=== PATIENT | male | born 1950 | race Caucasian/White ===

== ENCOUNTER → 2019-08-14 | Outpatient (CLI) | payer MEDICARE ==
[~2019-08-14] MED LIST: AMITRIPTYLINE H75 MG; LISINOPRIL-HCT1 EACH; NIASPAN500 MG; PRILOSEC OTC20 MG; SIMVASTATIN40 MG; ULTRAM50 MG
[2019-08-14 14:40] LABS: CREATININE, SERUM 2.78 mg/dL (0.72-1.25)
--- NOTE | 2019-08-15 07:58 | Diagnostic Imaging Report ---
Examination:CT SOFT TISSUE NECK WO CONTRAST History: Carotid stenosis. Bilateral carotid bruit. Comparison studies: None Technique: Axial images from the skull base to the thoracic inlet with coronal and sagittal reformats. Dose modulation, iterative reconstruction, and/or weight based adjustment of the mA/kV was utilized to reduce the radiation dose to as low as reasonably achievable. Findings: Evaluation of the neck is limited due to the absence of intravenous contrast. In spite of this limitation, Soft tissues: No abnormalities. Aerodigestive tract: No abnormality. Lymph nodes: No radiographically significant adenopathy. Bilateral carotid arteries: There is atherosclerotic calcification bilateral carotid bifurcations and proximal right cervical internal carotid artery with presumed stenosis given near circumferential involvement (series 3, image #61). Thyroid gland: Normal in size and homogeneous. Submandibular glands: Normal in size and homogeneous. Parotid glands: Normal in size and homogeneous. Orbits: No abnormalities. Paranasal sinuses: Clear. Temporal bones: No abnormalities. Skull base and facial bones: Intact. Cervical spine: Diffuse disc osteophyte complexes from C3 6 through C6-C7 with severe bilateral neural foraminal narrowing from C3-C4 through C6-C7 and mild canal stenosis at C5-C6 and C6-C7. Visualized lung apices: Paraseptal and interstitial emphysematous change (right greater than left). IMPRESSION: Atherosclerotic calcification of the bilateral carotid bifurcations and proximal cervical right internal carotid artery. Evaluation for degree of stenosis is limited given lack of intravenous contrast. An ultrasound may be obtained for further evaluation given patient's renal failure. Degenerative changes of the cervical spine from C3-C4 through C6-C7, as above. Signed by: Dr. Kayla Barlow M.D. on 08/15/2019 7:54 AM
== END ==
LOC: CT 13:30
PROVIDERS: ATTEND Internal Medicine Cardiovascular Disease
DX: R09.89 Other specified symptoms and signs involving the circulatory and respiratory systems (principal)
CPT/HCPCS: 36415; 70490; 82565; 84520

== ENCOUNTER 2019-08-30 08:25 | Inpatient (IN) | payer OTHER ==
[2019-08-28 13:56] LABS: BASOPHILS % 0.5 % (0.0-1.0); EOSINOPHILS # (AUTO) 0.4 (0.0-0.4); EOSINOPHILS % 6.9 % (0.0-6.0); HEMATOCRIT 33.8 % (38.2-49.6); HEMOGLOBIN 10.8 g/dL (14.0-18.0); LYMPHOCYTES # (AUTO) 1.4 (1.0-3.2); LYMPHOCYTES % 22.4 % (18.0-39.1); MEAN CORPUSCULAR HEMOGLOBIN 31.1 pg (28-32); MEAN CORPUSCULAR VOLUME 97.4 fL (81-99); MONOCYTES # (AUTO) 0.5 (0.2-0.8); MONOCYTES % 7.7 % (4.4-11.3); NEUTROPHILS # (AUTO) 3.9 (2.1-6.9); NEUTROPHILS % 62.2 % (38.7-80.0); PLATELET COUNT 162 x10e3/uL (140-360); RED BLOOD COUNT 3.47 x10e6/uL (4.3-5.7); RED CELL DISTRIBUTION WIDTH 12.1 % (11.7-14.4)
--- NOTE | 2019-08-28 13:57 | Diagnostic Imaging Report ---
EXAMINATION: CHEST 2 VIEWS INDICATION: Pre-operative COMPARISON: None FINDINGS: LINES/TUBES:None LUNGS:The lungs are well-inflated. No focal consolidation or pulmonary edema. PLEURA:No pleural effusion or pneumothorax. MEDIASTINUM:The cardiomediastinal silhouette appears normal in size and shape. Atherosclerotic calcifications of the thoracic aorta. BONES/SOFT TISSUES:No acute osseous injury. Sternotomy wires intact. ABDOMEN:No free air under the diaphragm. IMPRESSION: No focal pneumonia or pulmonary edema. Signed by: Grant Boland MD on 08/28/2019 1:53 PM
[2019-08-28 14:06] LABS: INR 0.9; PARTIAL THROMBOPLASTIN TIME 31.2 seconds (23.8-35.5); PROTHROMBIN TIME 12.6 seconds (11.9-14.5)
[2019-08-28 14:10] LABS: ANION GAP 16.1 mmol/L (8-16); CREATININE, SERUM 2.53 mg/dL (0.72-1.25); POTASSIUM 5.1 mmol/L (3.5-5.1)
[~2019-08-30] VITALS: Ht 165.1 cm; Wt 79.4 kg
[2019-08-30] VITALS (13 sets, daily range): BP systolic 116–164; BP diastolic 51–81
[~2019-08-30 08:25] MED LIST changes: -AMITRIPTYLINE H75 MG; +AMITRIPTYLINE H75 MG PO; +ASPIRIN81 MG PO; +FUROSEMIDE40 MG PO; +HEPARIN SOD/SOD CHLORIDE 1,000 ML ONE; +KLOR-CON 1010 MEQ PO; +LISINOPRIL-HCT1 EACH PO; +LOPRESSOR25 MG PO; -PRILOSEC OTC20 MG; +PRILOSEC OTC20 MG PO; +SIMVASTATIN40 MG PO
--- OUTSIDE RECORDS SUMMARY | 2019-08-30 08:30 | XMS REPORT ---
Author Author [facility] Address Unknown Phone Unavailable Care Team Providers Care [facility] Name Role Phone STUART WELLS Unavailable Unavailable SHANNON METZGER Unavailable Unavailable Problems This patient has no known problems. Allergies, Adverse Reactions, Alerts This patient has no known allergies or adverse reactions. Medications This patient has no known medications. Results Test Description Test Time Test Comments Text Results Atomic Results Result Comments CHEST 2 VIEWS 2019-08-28 13:52:00 [place] [address] Patient Name: ALISHA HARRISON MR #: [id number] : 1950 Age/Sex: 69/M Req #: [id number] Adm Physician: Ordered by: STUART WELLS MD Report #: [id number] Location: OR Room/Bed: Procedure: [id number] DX/CHEST 2 VIEWS Exam Date: 08/28/19 Exam Time: 1338 REPORT STATUS: Signed EXAMINATION: CHEST 2 VIEWS INDICATION: Pre-operative COMPARISON: None FINDINGS: LINES/TUBES:None LUNGS:The lungs are well-inflated. No focal consolidation or pulmonary edema. PLEURA:No pleural effusion or pneumothorax. MEDIASTINUM:The cardiomediastinal silhouette appears normal in size and shape. Atherosclerotic calcifications of the thoracic aorta. BONES/SOFT TISSUES:No acute osseous injury. Sternotomy wires intact. ABDOMEN:No free air under the diaphragm. IMPRESSION: No focal pneumonia or pulmonary edema. Signed by: Mateo Reid MD on 08/28/2019 1:53 PM Dictated By: MATEO REID MD 1359 Transcribed By: LENIN on 08/28/19 1355 COPY TO: STUART WELLS MD CT SOFT TISSUE NECK WO 2019-08-15 07:42:00 [place] [address] Patient Name: ALISHA HARRISON MR #: [id number] : 1950 Age/Sex: 69/M Req #: [id number] Adm Physician: Ordered by: SHANNON METZGER MD Report #: [id number] Location: CT Room/Bed: Procedure: [id number] CT/CT SOFT TISSUE NECK WO Exam Date: 08/14/19 Exam Time: 1510 REPORT STATUS: Signed Examination:CT SOFT TISSUE NECK WO CONTRAST Histor y: Carotid stenosis. Bilateral carotid bruit. Comparison studies: None Technique: Axial images from the skull base to the thoracic inlet with coronal and sagittal reformats. Dose modulation, iterative reconstruction, and/or weight based adjustment of the mA/kV was utilized to reduce the radiation dose to as low as reasonably achievable. Findings: Evaluation of the neck is limited due to the absence of intravenous contrast. In spite of this limitation, Soft tissues: No abnormalities. Aerodigestive tract: No abnormality. Lymph nodes: No radiographically significant adenopathy. Bilateral carotid arteries: There is atherosclerotic calcification bilateral carotid bifurcations and proximal right cervical internal carotid artery with presumed stenosis given near circumferential involvement (series 3, image #61). Thyroid gland: Normal in size and homogeneous. Submandibular glands: Normal in size and homogeneous. Parotid glands: Normal in size and homogeneous. Orbits: No abnormalities. Paranasal sinuses: Clear. Temporal bones: No abnormalities. Skull base and facial bones: Intact. Cervical spine: D iffuse disc osteophyte complexes from C3 6 through C6-C7 with severe bilateral neural foraminal narrowing from C3-C4 through C6-C7 and mild canal stenosis at C5-C6 and C6-C7. Visualized lung apices: Paraseptal and interstitial emphysematous change (right greater than left). IMPRESSION: Atherosclerotic calcification of the bilateral carotid bifurcations and proximal cervical right internal carotid artery. Evaluation for degree of stenosis is limited given lack of intravenous contrast. An ultrasound may be obtained for further evaluation given patient's renal failure. Degenerative changes of the cervical spine from C3-C4 through C6-C7, as above. Signed by: Dr. Kayla Barlow M.D. on 08/15/2019 7:54 AM Dictated By: KAYLA MAS MD 0754 Transcribed By: LENIN on 08/15/19 0754 COPY TO: SHANNON METZGER MD
--- OUTSIDE RECORDS SUMMARY | 2019-08-30 08:30 | XMS REPORT | Encounter Summary ---
Author Organization Unknown Address [address] [place] [address] Phone [phone] Care Team Providers Care [facility] Name Role Phone Dr. Jordy Turner 3 [phone] Edinson Stanton MD 82 [phone] Yohan Pierre MD 118 [phone] Caro Linares MD 129 [phone] Graham Munoz MD 188 [phone] Reason for Visit Hyperlipidemia; Annual Depression Screening Instructions 1. Body mass index 25-29 - overweight learning about healthy weight 2. Depression screening learning about depression 3. Hyperlipidemia high cholesterol: care instructions simvastatin 40 mg tablet lipid panel, serum CMP, serum or plasma 4. Rheumatic mitral regurgitation 5. Hypertensive disorder 6. Serum ferritin high 7. Chronic kidney disease 8. Anemia Discussion Note: None recorded. Plan of Care Patient Instructions It was good to see you in the office today for your Medicare Annual Wellness Visit. You have been provided some information on healthy nutrition, including a diet rich in fruits and vegetables, minimizing simple carbohydrates, salt, and saturated fats. I want to encourage regular cardiovascular exercise such as walking at least 30 minutes daily, 5 times per week. Please remember to schedule any preventive health measures that we talked about today. You have also been provided education on fall prevention and community- based lifestyle interventions to help reduce health risks and promote healthy living in your Annual Wellness folder. Screening Recommendations 1. Vaccines Pneumonia: Influenza: 2. Colorectal Cancer Screenin. Annual Prostate Screening 4. Annual Depression Screening 5. Annual Alcohol Screening 6. Annual Fall Risk Screening 7. Annual Health Risk Assessment Reminders Provider Appointments Return to Office on or around 07/11/2019 Jose Means MD Lab Lipid Panel, Serum 04/10/2019 [facility] CMP, Serum or Plasma 04/10/2019 [facility] Referral None recorded. Procedures None recorded. Surgeries None recorded. Imaging None recorded. Medications Name Start Date amitriptyline 75 mg tablet Take 1 tablet every day by oral route. furosemide 40 mg tablet Take 1 tablet every day by oral route. Klor-Con 10 mEq tablet,extended release Take 1 tablet every day by oral route. lisinopril 20 mg-hydrochlorothiazide 12.5 mg tablet Take 1 tablet(s) every day by oral route. metoprolol tartrate 25 mg tablet Take 1 tablet twice a day by oral route. Prilosec 20 mg capsule,delayed release Take 1 capsule every day by oral route. simvastatin 40 mg tablet TAKE ONE (1) TABLET(S) BY MOUTH EVERY DAY tramadol 50 mg tablet BID PRN Medications Administered None recorded. Vitals Height Weight BMI Blood Pressure 5 ft 4.6 in 167 lbs 28.1 kg/m2 128/70 mm[Hg] Lab Results None recorded. Allergies Code Code System Name Reaction Severity Status Onset NKDA Problems Name Status Onset Date Source Hyperlipidemia Active 08/06/2016 Anemia Active 08/06/2016 Neuropathy Active 08/06/2016 Hypertensive Disorder Active 08/06/2016 Gastroesophageal Reflux Disease Active 08/06/2016 Rheumatic Mitral Regurgitation Active 03/30/2017 Chronic Kidney Disease Active 03/30/2017 Polyp of Colon Active 07/17/2017 Tijerina's Esophagus Active 07/17/2017 Serum Ferritin High Active 10/16/2018 Procedures Date Name Performed by 10/12/2017 Colonoscopy with Biopsy Information not available 11/01/1999 Ankle Arthroscopy/surgery Information not available Hernia Repair Information not available Vaccine List Vaccine Type influenza, high dose seasonal 08/07/20160.5 mL influenza, unspecified formulation 09/01/2017 09/01/2018 pneumococcal, unspecified formulation 05/10/2015 09/01/2017 zoster 10/11/20170.65 mL Social History Smoking Status Former Smoker Past Encounters 04/10/2019 Body Mass Index 25-29 - Overweight; Depression Screening; Hyperlipidemia; Rheumatic Mitral Regurgitation; Hypertensive Disorder; Serum Ferritin High; Chronic Kidney Disease; Anemia Jose Means MD: [id number] [place] [address], Ph. 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 Level of Distress: comfortable Psychiatric: Mental Status: alert, normal affect. Orientation: oriented to time, place, and person. Insight: good judgment Eyes: Lids and Conjunctivae: non-injected, anicteric, no discharge, no pallor, no arcus senilis, no xanthelasma. Pupils: PERRLA Neck: Neck: supple, trachea midline, no masses, FROM. Carotid Arteries: bilateral normal upstroke, no bruits, no thrills. Cervical Lymph Nodes: non tender, not enlarged. Thyroid: not enlarged, non tender, no nodules Lungs: Respiratory Effort: unlabored. Chest Exam: normal curvature, no thoracic deformity, no chest wall tenderness. Percussion: resonant. Auscultation: clear, no wheezing, no rales, no rhonchi Cardiovascular: Precordial Exam: non displaced focal PMI, no heaves, no precordial thrills. Rate And Rhythm: regular. Heart Sounds: normal S1, physiologically split S2, no rub, no gallop, no click. Systolic Murmur: not heard. Diastolic Murmur: not heard. Extremities: no cyanosis, no edema, no peripheral signs of emboli Skin: Inspection and Palpation: warm and dry. Nails: no clubbing
[2019-08-30] MEDS ORDERED: LIDOCAINE HCL 1% 2 ML AMP ONE (09:00)
[2019-08-30] MEDS ORDERED: PROTAMINE SULFATE 10 MG/ML 5 ML VIAL ONE (09:00)
[2019-08-30] MEDS ORDERED: SODIUM CHLORIDE 0.9% 500ML 500 ML ONE (09:01)
[2019-08-30] MEDS ORDERED: HEPARIN SOD (PORCINE) 1000 UNIT/ML 30ML ONE (09:01)
[2019-08-30] MEDS ORDERED: MUPIROCIN 2% OINT 22 GM TUBE ONE (09:01)
[2019-08-30] MEDS ORDERED: THROMBIN FOR SOLN 5,000 UNIT VIAL ONE ×2 (09:01→12:30)
[2019-08-30] MEDS ORDERED: LIDOCAINE HCL (LTA) 4 ML SOLN ONE (10:04)
[2019-08-30] MEDS ORDERED: NICARDIPINE HCL SOLN 0 ML ONE (10:05)
[2019-08-30] MEDS ORDERED: SUGAMMADEX SODIUM 200 MG/2 ML VIAL IV ONE (11:25)
[2019-08-30] MEDS ORDERED: PHENYLEPHRINE HCL 1% 10 MG/ML VIAL ONE (14:18)
[2019-08-30 14:19] LABS: BASOPHILS # (AUTO) 0.1 (0.0-0.1); BASOPHILS % 0.5 % (0.0-1.0); EOSINOPHILS # (AUTO) 0.4 (0.0-0.4); EOSINOPHILS % 3.4 % (0.0-6.0); HEMATOCRIT 31.1 % (38.2-49.6); HEMOGLOBIN 10.2 g/dL (14.0-18.0); LYMPHOCYTES # (AUTO) 2.1 (1.0-3.2); LYMPHOCYTES % 16.4 % (18.0-39.1); MEAN CORPUSCULAR HEMOGLOBIN 31.2 pg (28-32); MEAN CORPUSCULAR HGB CONC 32.8 g/dL (31-35); MEAN CORPUSCULAR VOLUME 95.1 fL (81-99); MONOCYTES # (AUTO) 0.9 (0.2-0.8); MONOCYTES % 6.6 % (4.4-11.3); NEUTROPHILS # (AUTO) 9.2 (2.1-6.9); NEUTROPHILS % 72.2 % (38.7-80.0); PLATELET COUNT 172 x10e3/uL (140-360); RED BLOOD COUNT 3.27 x10e6/uL (4.3-5.7); RED CELL DISTRIBUTION WIDTH 12.2 % (11.7-14.4)
[2019-08-30 14:34] LABS: ALBUMIN 3.7 g/dL (3.5-5.0); ALBUMIN/GLOBULIN RATIO 1.3 (0.8-2.0); ANION GAP 14.7 mmol/L (8-16); CALCIUM 8.8 mg/dL (8.4-10.2); CREATININE, SERUM 2.25 mg/dL (0.72-1.25); POTASSIUM 4.7 mmol/L (3.5-5.1)
[2019-08-30] MEDS ORDERED: ONDANSETRON HCL 4 MG ORAL DISINTEGRATING TAB PO PRN (14:45)
[2019-08-30] MEDS ORDERED: MORPHINE SULFATE 2 MG/ML SYR 1ML IV PRN (14:45)
[2019-08-30] MEDS ORDERED: MORPHINE SULFATE INJ 4 MG/ML INJ 1ML IV PRN (14:45)
[2019-08-30] MEDS ORDERED: SODIUM CHLORIDE 0.9% 1000ML 1,000 ML IV SCH (14:45)
[2019-08-30] MEDS ORDERED: HYDROCODONE/APAP 5MG-325MG TAB PO PRN (14:45)
[2019-08-30] MEDS ORDERED: LABETALOL HCL 5 MG/ML 20ML VIAL IV PRN (14:45)
--- NOTE | 2019-08-30 14:45 | NUR ---
Rec'd patient to Room 196, alert, oriented with no acute distress noted. VSS, arterial line BP 118/58, HR 60, 97% on RA.
--- NOTE | 2019-08-30 15:03 | NUR ---
Consults called to Fredy Coyle, Td Stanton, and Tara Stanton.
--- NOTE | 2019-08-30 17:16 | Diagnostic Imaging Report ---
EXAM: Renal Ultrasound INDICATION: ^CKD ^Y COMPARISON: None TECHNIQUE: Transverse and longitudinal images of the kidneys and bladder were obtained. FINDINGS: Right Kidney: Length: 9.7 cm Appearance: Normal echogenicity. Collecting system: No hydronephrosis Stones: None Cyst/Mass: None Left Kidney: Length: 9.9 cm Appearance: Normal echogenicity. Collecting system: No hydronephrosis Stones: None Cyst/Mass: None Bladder: No mass or calculi. Left ureteral jet visualized. Prevoid volume estimate of 530.5 cc. The prostate measures 4.1 x 3.2 x 4.6 cm with a volume estimate of 30.9 cc. IMPRESSION: No renal calculi or hydronephrosis. Signed by: Grant Boland MD on 08/30/2019 5:13 PM
[2019-08-30] MEDS: METOPROLOL TARTRATE 25 MG TAB PO SCH (18:05)
[2019-08-30] MEDS ORDERED: LABETALOL HCL 5 MG/ML 20ML VIAL ONE (18:52)
[2019-08-30] MEDS ORDERED: PROPOFOL IV EMULSION 10 MG/ML 20 ML VIAL ONE (18:52)
[2019-08-30] MEDS ORDERED: LIDOCAINE HCL 2% LOCAL INJ 5 ML SDV VIAL INJ ONE (18:52)
[2019-08-30] MEDS ORDERED: ROCURONIUM BROMIDE 10 MG/ML 5ML VIAL ONE (18:52)
[2019-08-30] MEDS ORDERED: NEOSTIGMINE 5 MG/5ML SYR ONE (18:52)
[2019-08-30] MEDS ORDERED: CEFAZOLIN SOD 1 GM VIAL ONE (18:52)
[2019-08-30] MEDS ORDERED: SEVOFLURANE INHAL SOLN 250 ML PEN BTL ONE (18:52)
[2019-08-30] MEDS ORDERED: ONDANSETRON HCL INJ 2MG/ML 2ML 2 MG/ML VIAL ONE (18:52)
[2019-08-30] MEDS ORDERED: LIDOCAINE HCL 2% JELLY 5 ML TUBE ONE (18:52)
[2019-08-30] MEDS ORDERED: ACETAMINOPHEN 1000 MG/100 ML IV ONE (18:52)
[2019-08-30] MEDS ORDERED: GLYCOPYRROLATE INJ 1MG/ 5 ML SYR ONE (18:52)
--- NOTE | 2019-08-30 19:17 | Consultation ---
DATE OF CONSULTATION: Pulmonary Critical Care Consultation CHIEF COMPLAINT: Hypertension, systolic cardiomyopathy and recent carotid endarterectomy. HISTORY OF PRESENT ILLNESS: The patient is a 69-year-old man. He has history of mitral valve repair in May 2015. He also has a history of hypertension, peripheral vascular disease and chronic systolic congestive heart failure. He was recently found to have severe right-sided carotid artery stenosis. He went electively for a carotid endarterectomy today. A shunt was used and a Dacron graft was placed. There were no intraoperative complications. The patient was extubated and transferred to the ICU. He is not complaining of any focal neurological complaints. He is hemodynamically stable. PAST SURGICAL HISTORY: 1. Status post mitral valve repair in 2014. 2. Recent carotid endarterectomy as noted above. PAST MEDICAL HISTORY: 1. Peripheral vascular disease. 2. Hypertension. 3. Chronic systolic congestive heart failure. ALLERGIES: NO KNOWN DRUG ALLERGIES. SOCIAL HISTORY: The patient is not actively smoking or drinking. REVIEW OF SYSTEMS: The patient is afebrile. There is no headache. He is not complaining of any chest pain or difficulty breathing. There is no cough. He has no abdominal pain. There is no nausea or vomiting. There are no focal neurological complaints. PHYSICAL EXAMINATION: VITAL SIGNS: The patient is afebrile. The blood pressure is 115/80, heart rate is 60 to 65. HEENT: Shows no facial swelling or erythema. There is a bandage over the carotid endarterectomy site. CARDIAC: Reveals regular rate and rhythm with normal S1 and S2. LUNGS: Auscultation of lungs shows clear breath sounds bilaterally. There is no wheezing. ABDOMEN: Soft, nontender. There is no rebound or guarding. EXTREMITIES: Show no leg edema or calf tenderness. There is no cyanosis or clubbing. SKIN: Shows no rashes. NEUROLOGIC: Shows no focal abnormalities. IMPRESSION: 1. Hypertension. 2. Recent carotid endarterectomy. 3. Chronic systolic congestive heart failure. 4. Chronic renal insufficiency, stage 3. PLAN: 1. Continue current cardiac regimen. 2. Monitor kidney function and electrolytes. 3. Out of bed as tolerated. MD NAHUM Tran/TA[place]OR /[id number]
[2019-08-30] MEDS ORDERED: FENTANYL CITRATE/PF 100MCG/2 ML INJ ONE (19:19)
[2019-08-30] MEDS ORDERED: MIDAZOLAM HCL 2 MG/2 ML VIAL ONE (19:19)
[2019-08-30] MEDS ORDERED: CEFAZOLIN SOD 1 GM/NS 50ML 50 ML IV ONE (20:00)
[2019-08-30] MEDS ORDERED: PNEUMOCOCCAL VACCINE POLYVALENT 23 MCG/0.5 ML VIAL IM SCH (20:26)
[2019-08-30] MEDS ORDERED: NON-FORMULARY MEDICATION (Amitriptyline Hcl 50 MG) PO SCH (21:00)
[2019-08-30] MEDS ORDERED: AMITRIPTYLINE HCL 25 MG TAB PO SCH (21:00)
[2019-08-30] MEDS ORDERED: SIMVASTATIN 40 MG TAB PO SCH (21:00)
--- NOTE | 2019-08-30 22:23 | Consultation ---
DATE OF CONSULTATION: Cardiology Consultation. CHIEF COMPLAINT: The patient is a 69-year-old with right carotid endarterectomy. HISTORY OF PRESENT ILLNESS: The patient was admitted electively for right carotid endarterectomy. The patient has had no chest pain postoperatively. No shortness of breath. The patient is awake and alert. PAST MEDICAL HISTORY: Significant for: 1. Mitral valve repair in 2014. 2. Hypertension. 3. Hypercholesterolemia. 4. Carotid artery disease. MEDICATIONS: At home include simvastatin, Prilosec, lisinopril, metoprolol, and furosemide. SOCIAL HISTORY: The patient does not drink and does not smoke. FAMILY HISTORY: There is a known family history of hypertension. PHYSICAL EXAMINATION: GENERAL: The patient is a well-developed, well-nourished male, in no obvious distress. VITAL SIGNS: Included a temperature of 98.8, pulse was 64, blood pressure 120/70. NECK: Demonstrated a recent surgical incision from the right carotid endarterectomy. CHEST: Clear to auscultation and percussion. CARDIAC: Demonstrated normal S1 and S2 with a short 2/6 systolic murmur. ABDOMEN: Demonstrated good bowel sounds. No tenderness. No masses. EXTREMITIES: There is no clubbing, no cyanosis, and no edema. NEUROLOGICAL: The patient was alert and oriented x3. Cranial nerves II through XII were intact. Motor strength was +5/+5 in all limbs. DIAGNOSTIC DATA: The patient's EKG demonstrated normal sinus rhythm with some nonspecific ST and T-wave changes. IMPRESSION: The patient is a 69-year-old with a carotid endarterectomy done this morning. The patient is doing well postoperatively with no active cardiac issues. MD TERE Brown/MODL /[id number]
--- NOTE | 2019-08-30 23:09 | Consultation ---
DATE OF CONSULTATION: 08/30/2019 HISTORY: Mr. Dimas Richards is known to our Nephrology Service with underlying history of chronic kidney disease stage 3, hypertension, who was brought in for elective carotid endarterectomy. He had a successful right carotid endarterectomy. He is currently comfortable except for slight neck discomfort. He has no complaints. Denies shortness of breath, headache, fever, chills, chest pain, shortness of breath. He still has not voided yet, was receiving LR, which I have asked the nurse to stop. LABORATORY DATA: Show white count 12.7, hemoglobin 10.2. Chemistries, potassium 4.7, bicarbonate 20, and creatinine 2.5. ALLERGIES: HE HAS NO DRUG ALLERGIES. CURRENT MEDICATIONS: The patient is on lisinopril, hydrochlorothiazide, which I am going to hold, received , on enoxaparin 40 mg subcu daily, aspirin 81 mg daily, and hydrocodone p.r.n. SOCIAL HISTORY: He does not smoke or drink. FAMILY HISTORY: Significant for hypertension. PHYSICAL EXAMINATION: GENERAL: Awake, alert, and oriented x3. No apparent distress. VITAL SIGNS: Blood pressure 105/69, pulse rate 61, afebrile, respiratory rate 17. HEAD AND NECK: Cornea clear. Oral mucosa moist. Dressing noted on right side of neck. LUNGS: Relatively clear, supine exam. HEART: S1, S2 audible. ABDOMEN: Soft, nontender. EXTREMITIES: Lower extremity examination, no edema. IMPRESSION AND PLAN: Chronic kidney disease stage 3, serum creatinine is close to baseline. Normal blood pressure noted. I will discontinue the lisinopril/HCTZ order. Consider holding enoxaparin due to fresh surgery. Defer to Dr. Mcconnell. Volume status stable. Discussed with RN. I will monitor the patient's urine output and kidney function with you. MD TAMI Vang/[place]YLOR /[id number]
--- NOTE | 2019-08-30 23:27 | NUR ---
Dr. Mcconnell called for update on pt, said to straight cath pt if urinary retention continues.
[2019-08-31] VITALS (11 sets, daily range): BP systolic 92–162; BP diastolic 60–80
[2019-08-31] MEDS: HYDROCODONE/APAP 5MG-325MG TAB PO PRN ×2 (03:17→06:30)
[2019-08-31 05:17] LABS: BASOPHILS % 0.3 % (0.0-1.0); EOSINOPHILS % 0.1 % (0.0-6.0); HEMATOCRIT 32.5 % (38.2-49.6); HEMOGLOBIN 10.6 g/dL (14.0-18.0); LYMPHOCYTES # (AUTO) 0.7 (1.0-3.2); MEAN CORPUSCULAR HEMOGLOBIN 31.1 pg (28-32); MEAN CORPUSCULAR HGB CONC 32.6 g/dL (31-35); MEAN CORPUSCULAR VOLUME 95.3 fL (81-99); MONOCYTES # (AUTO) 0.8 (0.2-0.8); MONOCYTES % 8.2 % (4.4-11.3); NEUTROPHILS # (AUTO) 7.5 (2.1-6.9); NEUTROPHILS % 82.9 % (38.7-80.0); PLATELET COUNT 173 x10e3/uL (140-360); RED BLOOD COUNT 3.41 x10e6/uL (4.3-5.7); RED CELL DISTRIBUTION WIDTH 12.3 % (11.7-14.4)
[2019-08-31 05:34] LABS: ALBUMIN 4.2 g/dL (3.5-5.0); ALBUMIN/GLOBULIN RATIO 1.4 (0.8-2.0); ANION GAP 17.4 mmol/L (8-16); CALCIUM 9.6 mg/dL (8.4-10.2); CREATININE, SERUM 1.82 mg/dL (0.72-1.25); POTASSIUM 4.4 mmol/L (3.5-5.1)
[2019-08-31] MEDS ORDERED: PANTOPRAZOLE SOD 40 MG TABEC PO SCH (07:30)
[2019-08-31] MEDS: METOPROLOL TARTRATE 25 MG TAB PO SCH (08:49)
[2019-08-31] MEDS ORDERED: ENOXAPARIN SOD INJ 40 MG/0.4 ML SYR SC SCH (09:00)
[2019-08-31] MEDS ORDERED: HYDROCHLOROTHIAZIDE 25 MG TAB PO SCH (09:00)
[2019-08-31] MEDS ORDERED: NON-FORMULARY MEDICATION (Omeprazole Magnesium (Prilosec Otc) 20 MG) PO SCH (09:00)
[2019-08-31] MEDS ORDERED: ASPIRIN 81 MG CHEW TAB PO SCH (09:00)
[2019-08-31] MEDS ORDERED: LISINOPRIL 20 MG TAB PO SCH (09:00)
--- NOTE | 2019-08-31 11:37 | Progress Note ---
DATE: SUBJECTIVE: The patient's Elise catheter was removed last night. His A-line was removed this morning. He complains of some post incisional pain and some headache, but is not having any focal neurological abnormalities. PHYSICAL EXAMINATION: VITAL SIGNS: The patient is afebrile. The blood pressure is 109/80. HEENT: Shows no facial swelling or erythema. CARDIAC: Reveals regular rate and rhythm with normal S1 and S2. LUNGS: Auscultation of lungs is clear breath sounds bilaterally. There is no wheezing. ABDOMEN: Soft, nontender. There is no rebound or guarding. EXTREMITIES: Show no leg edema or calf tenderness. LABORATORY DATA: The BUN to creatinine ratio is 48 to 1.82 and the other electrolytes are within normal limits. The white blood cell count is 9.1 and hemoglobin is 10.6. The platelet count is 173. IMPRESSION: 1. Hypertension. 2. Chronic renal insufficiency, stage III. 3. Status post mitral valve repair in 2014. PLAN: 1. Continue to observe patient for 6 more hours. The patient is stable. We will discharge home. 2. Follow up with Dr. Mcconnell. Gamal Stanton MD [facility]/[place] /[id number]
[2019-08-31] MEDS ORDERED: PNEUMOCOCCAL VACCINE POLYVALENT 23 MCG/0.5 ML VIAL ONE (15:46)
--- NOTE | 2019-09-03 21:50 | Operative Report ---
DATE OF PROCEDURE: 08/30/2019 SURGEON: Frederick Mcconnell MD GEOSPATIAL APPLICATIONS DEVELOPER: Mark. PREOPERATIVE DIAGNOSIS: Severe right carotid stenosis. POSTOPERATIVE DIAGNOSES: 1. Severe right carotid stenosis. 2. Severe obstructing kink of right internal carotid artery. TITLE OF OPERATIONS: 1. Right carotid endarterectomy. 2. Resection of kinked right internal carotid artery. 3. Reconstruction of right carotid artery. DESCRIPTION OF OPERATION: After the satisfactory accomplishment of general anesthesia, the patient's right neck was prepped and draped in sterile fashion. A standard right carotid incision was made along the anterior border of the sternomastoid muscle. The incision was carried down through the muscles and fascia to expose the right common carotid artery. The vessel was dissected free from the surrounding tissues and looped with a vessel loop. The dissection was then carried distally to expose the external carotid artery and its branches, and the internal carotid artery. During the exposure of the right internal carotid artery, an extraordinary kink was noticed. This kink folded back upon itself in such a way as to obstruct the flow of blood into the right internal carotid artery. In addition, the distal end of the internal carotid artery plaque was palpated up to the level of the beginning of the proximal part of the kink in the artery. Because of this, the right internal carotid artery was dissected free from the surrounding tissues well toward the base of the brain. Care was taken to identify and preserve all nerve structures in the region. Systemic heparin was given for the purposes of anticoagulation. The internal carotid artery was compressed between the distal tips of vascular forceps and a small incision was made in the anterior surface of the distal vessel. The distal end of the shunt was inserted without difficulty here and a vessel loop was used to secure the shunt in place. Following this, a cross-clamp was placed on the proximal right internal carotid artery and an incision was made in the anterior surface of the vessel. The proximal end of the shunt was then inserted into the right internal carotid artery, thereby re-establishing blood flow to the right side of the brain for the remainder of the case. The vessel loop was used to occlude all flow in the right internal carotid artery except that was coming through the shunt. The ischemic time for the right half of the brain was less than 10 seconds. Attention was then turned to the carotid artery itself. A long incision was made in the common carotid artery and carried through the bifurcation and well up into the right internal carotid artery up to the level of the kink. A severely obstructing atherosclerotic plaque was removed using standard endarterectomy techniques. Following this, the surface of the vessel was smoothed and all loose debris was carefully removed. Heparinized saline flushes were routinely employed. The kinked part of the right internal carotid artery was then removed along with the plaque specimen and it was sent to the pathology lab for further inspection. The back wall of the right internal carotid artery was then carefully mobilized and advanced approximately to the level of the right internal carotid artery that was just distal to the carotid bifurcation. The back sanches of the distal and proximal right internal carotid arteries were then joined with a running suture of 6-0 Prolene. During this entire time, the shunt was kept in place and not removed. A previously constructed Dacron patch was then brought into the operative field. The patch was then used to close the anterior wall of the newly reconstructed right internal carotid artery. A running 7-0 Prolene was used for this patch closure. Prior to completing the closure, the shunt was removed and the vessel was flushed free from all air and debris. Once the sutures were tied, excellent pulses were located within the patch area and beyond. Protamine was given to counteract the effects of the heparin. All bleeding points were cauterized, ligated, or oversewn. The wound was thoroughly irrigated with antibiotic solution and then closed in layers with interrupted 2-0 Vicryl for the deep tissues and Monocryl subcuticular stitches for the skin. The patient tolerated the procedure well and was returned to the Intensive Care Unit in good condition. MD NILA Saenz/TAYLOR /[id number]
== END 2019-08-31 15:57 | disposition home or self-care (01) | DRG 38 ==
LOC: OR 08:25 → PACU V 13:24 → ICU 14:45
PROVIDERS: ADMIT Thoracic Surgery (Cardiothoracic Vascular Surgery); ATTEND Thoracic Surgery (Cardiothoracic Vascular Surgery)
PROC: 03UK0JZ Supplement Right Internal Carotid Artery with Synthetic Substitute, Open Approach (ICD-10-PCS; 2019-08-30)
PROC: 03CK0ZZ Extirpation of Matter from Right Internal Carotid Artery, Open Approach (ICD-10-PCS; principal; 2019-08-30 10:30)
DX: I65.21 Occlusion and stenosis of right carotid artery (principal); I13.0 Hypertensive heart and chronic kidney disease with heart failure and stage 1 through stage 4 chronic kidney disease, or unspecified chronic kidney disease; I50.22 Chronic systolic (congestive) heart failure; N18.3 Chronic kidney disease, stage 3 (moderate); I73.9 Peripheral vascular disease, unspecified
CPT/HCPCS: 36415; 71046; 76770; 80048; 80053; 85025; 85610; 85730; 86850; 86900; 88304; 88311; 90732; 93005; C1768; J0690; J1644; J1650; J2001; J2250; J2270; J2370; J2405; J2720; J3010; J7040; Q0162

== ENCOUNTER 2020-01-16 11:54 | Inpatient (IN) | payer MEDICARE ==
[~2020-01-16] VITALS: Ht 167.6 cm; Wt 81.6 kg
[~2020-01-16 11:54] MED LIST changes: -HEPARIN SOD/SOD CHLORIDE 1,000 ML ONE
--- OUTSIDE RECORDS SUMMARY | 2020-01-16 11:58 | XMS REPORT | Encounter Summary ---
Author Organization Unknown Address [address] [place] [address] Phone [phone] Care Team Providers Care [employer] Work Supervisor Name Role Phone Dr. Jose Means 3 [phone] Edinson Stanton MD 82 [phone] Yohan Pierre MD 118 [phone] Caro Linares MD 129 [phone] Graham Munoz MD 188 [phone] Reason for Visit Hyperlipidemia Instructions 1. Body mass index 30+ - obesity body mass index: care instructions learning about healthy weight 2. Hyperlipidemia high cholesterol: care instructions simvastatin 40 mg tablet lipid panel, serum 3. Chronic kidney disease stage 3 4. History of carotid endarterectomy 5. Non-rheumatic mitral regurgitation Discussion Note: None recorded. Plan of Care Patient Instructions continue meds/<wgt/>exercise as allowed per post op instructions Reminders Provider Appointments Return to Office on or around 02/07/2020 Jose Means MD Lab Lipid Panel, Serum 11/09/2019 [facility] Laboratory Referral None recorded. Procedures None [...] by oral route. simvastatin 40 mg tablet Take 1 tablet every day by oral route for 90 days. tramadol 50 mg tablet BID PRN Medications Administered None recorded. Vitals Height Weight BMI Blood Pressure 5 ft 4.6 in 186 lbs 31.3 kg/m2 134/86 mm[Hg] Results Lab Results None recorded. Allergies Code Code [...] 09/01/2018 pneumococcal, unspecified formulation 05/10/2015 09/01/2017 zoster live 10/11/20170.65 mL Social History Tobacco Smoking Status Former Smoker Past Encounters 11/09/2019 Body Mass Index 30+ - Obesity; Hyperlipidemia; Chronic Kidney Disease Stage 3; History of Carotid Endarterectomy; Non-rheumatic Mitral Regurgitation Jose Means MD: [address] [place] [address], Ph. History of Present Illness Note:f/u hld out of meds 9 days<div>h/o R carotid surgery aug 2019</div><div> under care cardiology-cardiac valvular disease</div><div> nephrology-ckd 3</div> Review of Systems:ROS as noted in the HPI Review of Systems None recorded. Physical Exam Cardiology Exam Reported By: Patient Constitutional: General Appearance: well-developed, appears stated age, obese. Level of Distress: comfortable Psychiatric: Mental Status: alert, normal affect. Orientation: oriented to time, place, and person. Insight: good judgment Eyes: Lids and Conjunctivae: non-injected, anicteric, no discharge, no pallor, no arcus senilis, no xanthelasma. Pupils: PERRLA Neck: Neck: supple, trachea midline, no masses, FROM. Carotid Arteries: bilateral normal upstroke, no bruits, no thrills; R Carotid artery op scar. Cervical Lymph Nodes: non tender, not enlarged. [...]
[2020-01-16 12:21] LABS: BASOPHILS # (AUTO) 0.1 (0.0-0.1); BASOPHILS % 0.8 % (0.0-1.0); EOSINOPHILS # (AUTO) 0.3 (0.0-0.4); EOSINOPHILS % 3.8 % (0.0-6.0); HEMATOCRIT 32.4 % (38.2-49.6); HEMOGLOBIN 10.8 g/dL (14.0-18.0); LYMPHOCYTES # (AUTO) 1.6 (1.0-3.2); LYMPHOCYTES % 19.9 % (18.0-39.1); MEAN CORPUSCULAR HEMOGLOBIN 31.5 pg (28-32); MEAN CORPUSCULAR HGB CONC 33.3 g/dL (31-35); MEAN CORPUSCULAR VOLUME 94.5 fL (81-99); MONOCYTES # (AUTO) 0.8 (0.2-0.8); MONOCYTES % 10.2 % (4.4-11.3); NEUTROPHILS # (AUTO) 5.1 (2.1-6.9); NEUTROPHILS % 64.8 % (38.7-80.0); PLATELET COUNT 195 x10e3/uL (140-360); RED BLOOD COUNT 3.43 x10e6/uL (4.3-5.7); RED CELL DISTRIBUTION WIDTH 12.5 % (11.7-14.4)
[2020-01-16] MEDS ORDERED: ONDANSETRON HCL INJ 2MG/ML 2ML 2 MG/ML VIAL IV STA (12:23)
[2020-01-16] MEDS ORDERED: SODIUM CHLORIDE 0.9% 1000ML 1,000 ML ONE (12:31)
[2020-01-16] MEDS ORDERED: SODIUM CHLORIDE 0.9% 1000ML 1,000 ML IV ONE (12:45)
[2020-01-16 12:49] LABS: ALBUMIN 4.1 g/dL (3.5-5.0); ALBUMIN/GLOBULIN RATIO 1.4 (0.8-2.0); ANION GAP 12.8 mmol/L (8-16); CALCIUM 8.7 mg/dL (8.4-10.2); CREATININE, SERUM 3.08 mg/dL (0.72-1.25); POTASSIUM 4.8 mmol/L (3.5-5.1)
[2020-01-16 12:57] LABS: CREATINE KINASE MB 0.5 ng/mL (0-5.0)
[2020-01-16] MEDS ORDERED: SODIUM CHLORIDE 0.9% 1000ML 1,000 ML IV SCH (13:15)
--- NOTE | 2020-01-16 13:49 | Diagnostic Imaging Report ---
TECHNIQUE: Frontal view of the chest. INDICATION: ^syncope ^[id number] ^[id number] COMPARISON: 08/28/2019 IMPRESSION: Lines and hardware: Stable. Specifically, fracture of the second most inferior sternotomy wire. Heart and mediastinum: Stable. Lungs and pleura: No focal airspace consolidation. No pleural effusion. No pneumothorax. Soft tissues and bones: No acute abnormality. Signed by: Juan M Houston MD on 01/16/2020 1:45 PM
[2020-01-16 15:00] VITALS: BP 139/67
[2020-01-16 15:09] VITALS: BP 139/67
[2020-01-16 15:10] VITALS: BP 139/67
[2020-01-16] MEDS: SODIUM CHLORIDE 0.9% 1000ML 1,000 ML IV SCH (15:47)
--- NOTE | 2020-01-16 16:56 | NUR ---
informed Dr. Pride of [facility], spoke to Arthur
--- NOTE | 2020-01-16 17:06 | Consultation ---
DATE OF CONSULTATION: 01/16/2020 Cardiology Consult HISTORY OF PRESENT ILLNESS: Mr. Dimas Richards is a 69-year-old male with a primary history of hypertension and mitral valve repair five years ago, admitted complaining of dizziness accompanied with diaphoresis and generalized weakness. The patient denies any chest pain or shortness of breath. The patient also reports having diarrhea for 3 weeks. MEDICAL HISTORY: 1. Hypertension. 2. Mitral valve repair. 3. GERD. HOME MEDICATIONS: Include amitriptyline 75 mg p.o. daily, aspirin 81 mg p.o. daily, furosemide 40 mg daily. Lisinopril/hydrochlorothiazide one tab p.o. daily. Metoprolol 25 mg p.o. b.i.d., omeprazole 20 mg daily, potassium 10 mEq p.o. daily. Simvastatin 40 mg daily and tramadol 50 mg p.o. daily. ALLERGIES: NO KNOWN DRUG ALLERGIES. PHYSICAL EXAMINATION: VITAL SIGNS: Pulse is 78, temperature is 97.5, respirations 14, blood pressure is 139/67, pulse oximetry is 99% on room air. On EKG, normal sinus rhythm. Heart rate on 60s. GENERAL: The patient is well developed, well nourished, in no acute respiratory distress. SKIN: Normal in appearance, texture, and temperature. Warm and dry. HEENT: The patient's cranium is normocephalic and atraumatic. Pupils are equally round, reactive to light and accommodation. Sclerae are nonicteric. Ears are normal. Mucosa is moist. Throat is clear. NECK: Supple. Full range of motion. No cervical lymphadenopathy. No JVD. RESPIRATORY: Normal respiratory effort. LUNGS: Clear to auscultation bilaterally. CARDIOVASCULAR: S1 and S2 is audible. Regular rate and rhythm. No significant murmurs heard. GASTROINTESTINAL: Soft, nontender, nondistended. Bowel sounds are present. EXTREMITIES: No cyanosis, no clubbing, no edema. NEUROVASCULAR: Motor is intact. Pulses are palpable 2+ throughout. NEUROLOGIC: Motor and sensory examination of the upper and lower extremities is normal. Reflexes are normal and symmetrical bilaterally. IMPRESSION AND PLAN: The patient is a 69-year-old male admitted with severe volume depletion and acute kidney injury after having three weeks of diarrhea. 1. Administer intravenous fluids and electrolytes as needed for volume depletion. 2. Discontinue diuretics, Lasix. 3. Monitor for electrolyte imbalance and give replacement if needed. 4. The patient needs evaluation for diarrhea. 5. Further recommendation will follow according to patient's clinical course. Thank you for this consultation. Dictated by Elmira Ellison NP MD LANI Brown/TAYLOR /[id number]
[2020-01-16] MEDS ORDERED: BISMUTH SUBSALICYLATE 262 MG TAB PO PRN (18:00)
[2020-01-16 19:00] VITALS: BP 132/68
[2020-01-16 19:49] LABS: FERRITIN 984.88 ng/mL (21.81-274.66)
--- NOTE | 2020-01-16 19:52 | Consultation ---
DATE OF CONSULTATION: 01/16/2020 HISTORY OF PRESENT ILLNESS: Mr. Richards is a known patient to me from office visit. He is a 69-year-old gentleman with only past medical history of hypertension. Last time seen him in the office was this morning when he presented for office visit. The previous time we seen him was back in 2018, after performing a screening colonoscopy. When he came to the office today, he looked pale and he had presyncopal episode, for which 911 was called and the ambulance took him to [facility] for evaluation. He was admitted to the ICU. Cardiology, Dr. Edinson Stanton have seen him. So far, no clear etiology of the syncopal episodes except for possible severe dehydration from 3 weeks complain of loose bowel movement. His bowel movements started about 3 weeks. The only risk factor that he visited his , when she was a patient at [facility]. He had not been outside the country. He denied any nausea or vomiting. Denied any fever. Denied any abdominal pain. Denied seeing any blood in the stool. His bowel when first initially started was watery, subsequently got more mushy with less number of bowel movement after starting Kaopectate. This has been going on complain for the past 3 weeks. The only other symptoms associated is bloating. He has no recent take of antibiotic and no travel. REVIEW OF SYSTEMS: As above, in addition to mild acid reflux. CURRENT MEDICATIONS: Normal saline, Protonix, Elavil, simvastatin, and aspirin. PAST SURGICAL HISTORY: He has a heart valve repair. FAMILY HISTORY: Noncontributory. SOCIAL HISTORY: , has no children. He stopped smoking 18 years ago and does not drink. PHYSICAL EXAMINATION: GENERAL: Awake, alert, and oriented. VITAL SIGNS: Pulse 78, temperature 97.5, and blood pressure is 139/67. NECK: Supple. No node. No mass. LUNGS: Clear to auscultation. HEART: Regularly regular rhythm. ABDOMEN: Soft, obese, mildly distended. Bowel sounds present. Nontender. No acute sign. EXTREMITIES: No edema. CENTRAL NERVOUS SYSTEM: Motor function grossly intact. LABORATORY DATA: White cell count 7.8, hemoglobin 10, hematocrit 32, and platelet 195. Sodium 134, potassium 4.8, BUN 81, and creatinine 3. Liver function normal. IMPRESSION: Severe diarrhea for the past 3 weeks. Could be contributing factor for dehydration and his syncopal episode. My plan to obtain stool test for ova and parasite and Giardia for culture for Clostridium difficile for calprotectin. Also, we will check a sedimentation rate. We will check a serum reactive protein. We will continue his Kaopectate and use lactobacillus. He did have colonoscopy back in 2018, which only shows severe diverticulosis. Also, we will check his thyroid function test. As far as the anemia, we will obtain B12, RBC folate, and iron study. As far as the abnormal kidney function, I recommended to the nursing staff here at the ICU to inform the primary care the level of the BUN and creatinine and may require Renal consult. We will follow. Mann Pride MD RD/MODL /[id number]
--- NOTE | 2020-01-16 20:47 | History and Physical ---
CHIEF COMPLAINT: Near-syncope, dehydration, and hypotension. HISTORY OF PRESENT ILLNESS: This is a 69-year-old male, who has past medical history of hypertension, hyperlipidemia, and history of depression, presented to the ED after having a near syncopal episode that occurred at the GI office and worsening diarrhea ongoing for the last 3 weeks. The patient reported to the GI clinic today, found to have a blood pressure systolically in the 70s, brought in after having near syncopal episode that occurred in the GI clinic. While here, the patient was found to have low blood pressure readings. Of note, recorded and documented systolic blood pressure 68/42. He was given multiple liters of normal saline boluses and responded to current blood pressure 139/67. The patient reports he has been having diarrhea, loose watery stool, ongoing for the last 3 weeks. Denies any recent travel. No fever, nausea, or vomiting at home. He reports eating and drinking very well, thought that he was able to keep up with his fluid intake, but apparently he was not able to. No reports of any chest pain or any palpitations. The patient was brought in and admitted, in which GI and Cardiology were consulted. It seems likely that his underlying syncopal episode is likely secondary to dehydration. REVIEW OF SYSTEMS: Pertinent positive: Diarrhea, loose watery stools, syncopal episode, dehydration. The rest of 14-point review of systems are reviewed with the patient and are negative. He denies any abdominal pain. ALLERGIES: NO KNOWN DRUG ALLERGIES. HOME MEDICATIONS: Furosemide, metoprolol, tramadol, lisinopril, hydrochlorothiazide, potassium chloride, amitriptyline, aspirin, omeprazole, and simvastatin. PAST MEDICAL HISTORY: Hypertension, depression, acid reflux, and hyperlipidemia. PAST SURGICAL HISTORY: Reports none. FAMILY HISTORY: Hypertension and diabetes. SOCIAL HISTORY: No drugs. No alcohol. Does not smoke. Good social support. PHYSICAL EXAMINATION: VITAL SIGNS: Temperature is 97.5, pulse 70, respiratory rate is 14, blood pressure 131/67, and pulse ox 99% on room air. GENERAL: Not in acute distress. Alert and oriented x3. Cooperative on examination. HEENT: Head; normocephalic, atraumatic. Eyes; pupils are equal, round, and reactive to light bilaterally. Extraocular movements intact bilaterally. Throat; no evidence of erythema or exudates in the posterior pharynx. Has poor dentition. NECK: Supple. Good range of motion. PULMONARY: Clear to auscultation bilaterally. No wheezing, no rales, no rhonchi, no crackles appreciated. CARDIOVASCULAR: Positive S1 and S2. No murmurs, rubs, or gallops appreciated. ABDOMEN: Soft, nondistended, and nontender to palpation. Bowel sounds present. MUSCULOSKELETAL: Strength is 5/5 throughout. No evidence of any muscle deficits on examination. No weakness appreciated. NEUROLOGIC: Cranial nerves 2 through 12 grossly intact. No evidence of any neurological deficits on exam. SKIN: Intact. Warm to touch. He does have skin tenting, looks dehydrated on examination. Oral mucosa is dry. EXTREMITIES: No edema. Good range of motion throughout. LABORATORY FINDINGS: Show white count 7.8, hemoglobin 10.8, hematocrit is 32, and platelets of 195. Chemistry; sodium 134, potassium 4.8, chloride 103, bicarb 23, anion gap of 12, BUN is 81, creatinine is 3.08, glucose 120, and calcium 8.7. Total bilirubin is 0.2, AST 14, ALT 12, and alkaline phosphatase 91. Troponins were 0.018. Albumin is 4.1. MICROBIOLOGY: None. IMAGING STUDIES: Chest x-ray shows no pleural effusion, soft tissue and bones. No acute abnormalities. No pneumothorax. IMPRESSION: 1. Syncopal episode, likely secondary to dehydration from underlying diarrhea. 2. Diarrhea, likely viral gastroenteritis. 3. Hypertension. 4. Hyperlipidemia. PLAN: At this time, it seems likely that his underlying syncopal episode is from severe dehydration. The patient has been having diarrhea ongoing for the last 3 weeks and looks clinically dehydrated on examination. He came in very hypotensive, systolically in the 60s, but currently his blood pressure is 131/67. I will give him an additional bolus of normal saline. Continue with IV fluid maintenance. He has stool cultures pending. Cardiology was consulted for an abnormal EKG, which we will follow their recommendations. GI was consulted, recommended stool cultures. Otherwise, no need for any antibiotics at this current moment. C. difficile and stool cultures will be collected. Hold all antihypertensive medications. We will put him on Lovenox for DVT prophylaxis. We will monitor very closely. MD ANGY Kilgore/ABBIL /[id number]
[2020-01-16] MEDS ORDERED: NON-FORMULARY MEDICATION (Amitriptyline Hcl 75 MG) PO SCH (21:00)
[2020-01-16] MEDS: SIMVASTATIN 40 MG TAB PO SCH (21:01)
[2020-01-16] MEDS: AMITRIPTYLINE HCL 25 MG TAB PO SCH (21:01)
[2020-01-16 23:59] VITALS: BP 116/72
[2020-01-17] VITALS (8 sets, daily range): BP systolic 85–176; BP diastolic 53–93
[2020-01-17 05:12] LABS: BASOPHILS # (AUTO) 0.1 (0.0-0.1); BASOPHILS % 0.7 % (0.0-1.0); EOSINOPHILS # (AUTO) 0.3 (0.0-0.4); EOSINOPHILS % 3.3 % (0.0-6.0); HEMOGLOBIN 10.2 g/dL (14.0-18.0); LYMPHOCYTES # (AUTO) 1.5 (1.0-3.2); MEAN CORPUSCULAR HEMOGLOBIN 31.7 pg (28-32); MEAN CORPUSCULAR HGB CONC 32.9 g/dL (31-35); MEAN CORPUSCULAR VOLUME 96.3 fL (81-99); MONOCYTES % 13.5 % (4.4-11.3); NEUTROPHILS # (AUTO) 4.8 (2.1-6.9); NEUTROPHILS % 62.1 % (38.7-80.0); PLATELET COUNT 151 x10e3/uL (140-360); RED BLOOD COUNT 3.22 x10e6/uL (4.3-5.7); RED CELL DISTRIBUTION WIDTH 12.5 % (11.7-14.4)
[2020-01-17 05:29] LABS: CALCIUM 8.6 mg/dL (8.4-10.2); CREATININE, SERUM 1.98 mg/dL (0.72-1.25)
[2020-01-17] MEDS: SODIUM CHLORIDE 0.9% 1000ML 1,000 ML IV SCH ×3 (06:38→21:27)
[2020-01-17] MEDS: PANTOPRAZOLE SOD 40 MG TABEC PO SCH (07:24)
[2020-01-17] MEDS: LACTOBACILLUS ACIDOPHILUS CAPSULE PO SCH ×2 (08:03→17:31)
[2020-01-17] MEDS: ASPIRIN 81 MG CHEW TAB PO SCH (08:03)
[2020-01-17] MEDS ORDERED: NON-FORMULARY MEDICATION (Omeprazole Magnesium (Prilosec Otc) 20 MG) PO SCH (09:00)
--- NOTE | 2020-01-17 12:38 | NUR ---
Call to Dr Pride's office to notify regarding c-dif positive. The only option available was to leave a message for the intended recipient.
--- NOTE | 2020-01-17 18:21 | NUR ---
Consult to Dr Nick called to the answering service.
--- NOTE | 2020-01-17 18:45 | NUR ---
Report received. Assumed care. Assessment done. See interventions.
[2020-01-17] MEDS: AMITRIPTYLINE HCL 25 MG TAB PO SCH (21:02)
[2020-01-17] MEDS: SIMVASTATIN 40 MG TAB PO SCH (21:02)
[2020-01-17] MEDS: ACETAMINOPHEN 325 MG TAB PO PRN (21:15)
--- NOTE | 2020-01-17 21:21 | Progress Note ---
DATE: 01/17/2020 Medicine Progress Note SUBJECTIVE: The patient tested positive for C. difficile toxin. He is now started on oral vancomycin. ID has been consulted. His diarrhea has improved tremendously today. PHYSICAL EXAMINATION: VITAL SIGNS: Temperature is 98.4, pulse is 108, respiratory rate is 16, his blood pressure 130/70, and pulse ox 100% on room air. GENERAL: Not in acute distress. Alert and oriented x3. Cooperative on examination. HEENT: Head; normocephalic, atraumatic. Eyes; pupils are equal, round, and reactive to light bilaterally. Extraocular movements intact bilaterally. Throat; no evidence of erythema or exudates in the posterior pharynx. Has poor dentition. NECK: Supple. Good range of motion. PULMONARY: Clear to auscultation bilaterally. No wheezing, no rales, no rhonchi, no crackles appreciated. CARDIOVASCULAR: Positive S1 and S2. No murmurs, rubs, or gallops appreciated. ABDOMEN: Soft, nondistended, and nontender to palpation. Bowel sounds present. MUSCULOSKELETAL: Strength is 5/5 throughout. No evidence of any muscle deficits on examination. No weakness appreciated. NEUROLOGIC: Cranial nerves 2 through 12 grossly intact. No evidence of any neurological deficits on exam. SKIN: Intact. Warm to touch. Good cap refill. PSYCHIATRIC: Normal affect and mood. EXTREMITIES: No edema. Good range of motion throughout. LABORATORY FINDINGS: Show white count 7.6, hemoglobin 10.2, hematocrit is 31, and platelets of 151. Chemistries; sodium 138, potassium 5, chloride 111, bicarb 19, anion gap of 13, BUN is 57, creatinine is 1.98, and calcium is 8.6. C. difficile toxin positive. Stool culture, ova and parasite are pending. IMAGING STUDIES: None. IMPRESSION: 1. Syncopal episode secondary to dehydration. 2. Clostridium difficile toxin positive. 3. Hypertension. 4. Hyperlipidemia. 5. Dehydration-improving. PLAN: At this time, continue with aggressive IV fluid hydration. Creatinine is improving as well as electrolytes. Initiate oral vancomycin 125 mg p.o. q.6 hours schedule, first dose now. ID has been consulted. As per Cardiology, we will await for their final recommendations. As per GI, follow their recommendations. Repeat labs in the morning. Encourage ambulation. Discussed plan of care with the patient and nursing staff. The patient looks much better today with no other issues. MD ANGY Kilgore/TAYLOR /[id number]
--- NOTE | 2020-01-17 21:30 | NUR ---
Report called to RN on MS2.
[2020-01-17] MEDS ORDERED: DIATRIZOATE MEGL/DIATRIZOA SOD 30 ML BTL PO ONE (21:35)
--- NOTE | 2020-01-17 22:00 | NUR ---
Transferred per wheelchair to 213. Care to RN.
--- NOTE | 2020-01-17 22:05 | NUR ---
Patient transferred from ICU via wheelchair to Room 213. Patient had no complaints of pain. Respirations even and non-labored. Patient oriented to room, call light and plan of care. Fall precautions implemented . Patient instructed to call for assistance when needed. Call light within reach.
[2020-01-18] VITALS (8 sets, daily range): BP systolic 121–151; BP diastolic 63–81
--- NOTE | 2020-01-18 01:54 | Diagnostic Imaging Report ---
EXAM: CT Abdomen and Pelvis WITHOUT contrast INDICATION: Abdominal pain.] C-difficile. COMPARISON: None. TECHNIQUE: Abdomen and pelvis were scanned utilizing a multidetector helical scanner from the lung base to the pubic symphysis without administration of IV contrast. Absence of intravenous contrast decreases sensitivity for detection of focal lesions and vascular pathology. Coronal and sagittal reformations were obtained. Routine protocol was performed. IV CONTRAST: None. ORAL CONTRAST: 900 cc of Gastrografin and water mixture. RADIATION DOSE: Total DLP: 650.207 mGy*cm Estimated effective dose: (DLP x 0.015 x size factor) mSv COMPLICATIONS: None FINDINGS: LINES and TUBES: None. LOWER THORAX: Unremarkable HEPATOBILIARY: No focal hepatic lesions. No biliary ductal dilation. GALLBLADDER: No radio-opaque stones or sludge. No wall thickening. SPLEEN: No splenomegaly. PANCREAS: No focal masses or ductal dilatation. ADRENALS: No adrenal nodules KIDNEYS/URETERS: No hydronephrosis. No cystic or solid mass lesions. No stones. GI TRACT: No abnormal distention, wall thickening, or evidence of bowel obstruction. There are a few scattered diverticula throughout the sigmoid colon, associated with mild stranding in the left lower quadrant posterior to the ascending colon on image 51 series 2 which may reflect mild diverticulitis without abscess formation. There is a moderate volume of stool within the colon and rectum.. Appendix is normal. PELVIC ORGANS/BLADDER: The prostate is mildly enlarged measuring LYMPH NODES: No lymphadenopathy. VESSELS: There is moderate atherosclerotic disease in the aorta and major arterial branches. PERITONEUM / RETROPERITONEUM: No free air or fluid. BONES: There are degenerative changes in the lumbar spine. SOFT TISSUES: Bilateral small fat-containing left inguinal hernia. IMPRESSION: 1. Colonic diverticulosis with possible mild descending colon diverticulitis. No abscess formation. 2. Moderate volume of stool within the colon and rectum Signed by: Dr. Raquel Soria M.D. on 01/18/2020 1:51 AM
[2020-01-18 05:52] LABS: BASOPHILS % 0.5 % (0.0-1.0); EOSINOPHILS # (AUTO) 0.2 (0.0-0.4); EOSINOPHILS % 3.2 % (0.0-6.0); HEMATOCRIT 31.1 % (38.2-49.6); HEMOGLOBIN 10.1 g/dL (14.0-18.0); LYMPHOCYTES # (AUTO) 1.2 (1.0-3.2); MEAN CORPUSCULAR HEMOGLOBIN 31.3 pg (28-32); MEAN CORPUSCULAR HGB CONC 32.5 g/dL (31-35); MEAN CORPUSCULAR VOLUME 96.3 fL (81-99); MONOCYTES # (AUTO) 0.6 (0.2-0.8); MONOCYTES % 10.4 % (4.4-11.3); NEUTROPHILS # (AUTO) 3.6 (2.1-6.9); NEUTROPHILS % 64.7 % (38.7-80.0); PLATELET COUNT 149 x10e3/uL (140-360); RED BLOOD COUNT 3.23 x10e6/uL (4.3-5.7); RED CELL DISTRIBUTION WIDTH 12.6 % (11.7-14.4)
[2020-01-18 06:10] LABS: ANION GAP 11.4 mmol/L (8-16); CALCIUM 8.8 mg/dL (8.4-10.2); CREATININE, SERUM 1.31 mg/dL (0.72-1.25); POTASSIUM 4.4 mmol/L (3.5-5.1)
[2020-01-18] MEDS: VANCOMYCIN 250MG/5ML ORAL SOLN PO SCH ×4 (06:20→16:59)
[2020-01-18] MEDS: SODIUM CHLORIDE 0.9% 1000ML 1,000 ML IV SCH ×2 (07:30→16:59)
--- NOTE | 2020-01-18 07:41 | NUR ---
The pt. is in bed awake but denies pain or discomfort at bedside rounding.
[2020-01-18] MEDS: ACETAMINOPHEN 325 MG TAB PO PRN ×2 (09:24→22:25)
[2020-01-18] MEDS: PANTOPRAZOLE SOD 40 MG TABEC PO SCH (09:24)
[2020-01-18] MEDS: LACTOBACILLUS ACIDOPHILUS CAPSULE PO SCH ×2 (09:24→16:59)
[2020-01-18] MEDS: ASPIRIN 81 MG CHEW TAB PO SCH (09:24)
[2020-01-18 13:10] LABS: ENDOMYSIAL ANTIBODIES, IGA Negative (Negative)
[2020-01-18] MEDS ORDERED: VANCOMYCIN 250MG/5ML ORAL SOLN PO SCH (18:50)
--- NOTE | 2020-01-18 20:10 | Consultation ---
DATE OF CONSULTATION: 01/18/2020 REASON FOR CONSULTATION: Diarrhea. HISTORY OF PRESENT ILLNESS: This patient, who is a very pleasant 69-year-old, who has been having diarrhea for the last 3 weeks. There is no fever, no chills. He was supposed to get colonoscopy once his GI doctor, Dr. Pride, when he almost passed out. He came here, was hypotensive. There is no fever, no chills, started on IV fluids, feeling better. PAST MEDICAL HISTORY: Hypertension, hypercholesterolemia, depression, and acid reflux disease. PAST SURGICAL HISTORY: Denies. ALLERGIES: NKA. SOCIAL HISTORY: There is no smoking, drug abuse, or alcohol abuse. FAMILY HISTORY: Otherwise unremarkable. PHYSICAL EXAMINATION: GENERAL: He is currently alert and oriented. Does not seem to be in acute distress. VITAL SIGNS: Stable, currently afebrile. HEENT: He is not icteric. NECK: Supple. CHEST: Clear. HEART: S1 and S2. No murmur. ABDOMEN: Soft. IMPRESSION: 1. Diarrhea, doubt infection. Stools for O and P and Clostridium difficile was ordered. He is currently on oral vancomycin. If Clostridium difficile is negative, can discontinue vancomycin. 2. Dehydration. Agree with IV fluid. If improved by tomorrow, can be discharged home. We will follow. MD PERCY Snow/TAYLOR /[id number]
[2020-01-18] MEDS: SIMVASTATIN 40 MG TAB PO SCH (21:00)
[2020-01-18] MEDS: AMITRIPTYLINE HCL 25 MG TAB PO SCH (21:00)
--- NOTE | 2020-01-18 21:11 | Progress Note ---
DATE: 01/18/2020 Medicine Progress Note SUBJECTIVE: The patient is doing much better today. His stool is much more formed. He is tolerating diet well. Prescription for vancomycin has been advanced to see if his can afford for him. He is otherwise doing much better today. There is no evidence of dehydration. PHYSICAL EXAMINATION: VITAL SIGNS: Temperature is 96.6, pulse 104, respiratory rate is 18, blood pressure 142/70, and pulse ox 98% on room air. GENERAL: Not in acute distress. Alert and oriented x3. Cooperative on examination. HEENT: Head; normocephalic, atraumatic. Eyes; pupils are equal, round, and reactive to light bilaterally. Extraocular movements intact bilaterally. Throat; no evidence of erythema or exudates in the posterior pharynx. Has poor dentition. NECK: Supple. Good range of motion. PULMONARY: Clear to auscultation bilaterally. No wheezing, no rales, no rhonchi, no crackles appreciated. CARDIOVASCULAR: Positive S1 and S2. No murmurs, rubs, or gallops appreciated. ABDOMEN: Soft, nondistended, and nontender to palpation. Bowel sounds present. MUSCULOSKELETAL: Strength is 5/5 throughout. No evidence of any muscle deficits on examination. No weakness appreciated. NEUROLOGIC: Cranial nerves 2 through 12 grossly intact. No evidence of any neurological deficits on exam. SKIN: Intact. Warm to touch. Good cap refill. PSYCHIATRIC: Normal affect and mood. EXTREMITIES: No edema. Good range of motion throughout. LABORATORY FINDINGS: Show white count 5.5, hemoglobin 10, hematocrit is 31, and platelets of 149. Chemistry; 142, potassium 4.4, chloride 115, bicarbonate 20, anion gap of 11, BUN is 35, creatinine is 1.31, glucose 96, and calcium is 8.8. MICROBIOLOGY: Ova and parasites are pending. IMPRESSION: 1. Syncope secondary to dehydration. 2. Clostridium difficile toxin positive with diarrhea, now improving. 3. Hypertension. 4. Hyperlipidemia. 5. Dehydration-improving. PLAN: At this time, continue with IV fluids. Continue with p.o. vancomycin 125 mg p.o. q.6 hours as scheduled. Prescription has been written and placed in the chart. ID has been consulted. GI and Cardiology are following. The patient will likely be discharged tomorrow, as his stools now formed now. No more diarrhea and he is tolerating diet well. MD ANGY Kilgore/TAYLOR /[id number]
[2020-01-19] VITALS: BP 142/72
[2020-01-19 04:00] VITALS: BP 141/72
[2020-01-19 05:59] LABS: BASOPHILS % 0.7 % (0.0-1.0); EOSINOPHILS # (AUTO) 0.2 (0.0-0.4); EOSINOPHILS % 3.9 % (0.0-6.0); HEMATOCRIT 29.7 % (38.2-49.6); HEMOGLOBIN 9.8 g/dL (14.0-18.0); LYMPHOCYTES # (AUTO) 1.2 (1.0-3.2); LYMPHOCYTES % 21.6 % (18.0-39.1); MEAN CORPUSCULAR HEMOGLOBIN 31.7 pg (28-32); MEAN CORPUSCULAR VOLUME 96.1 fL (81-99); MONOCYTES # (AUTO) 0.5 (0.2-0.8); MONOCYTES % 9.6 % (4.4-11.3); NEUTROPHILS # (AUTO) 3.6 (2.1-6.9); NEUTROPHILS % 63.8 % (38.7-80.0); PLATELET COUNT 143 x10e3/uL (140-360); RED BLOOD COUNT 3.09 x10e6/uL (4.3-5.7); RED CELL DISTRIBUTION WIDTH 12.9 % (11.7-14.4)
[2020-01-19] MEDS: VANCOMYCIN 250MG/5ML ORAL SOLN PO SCH ×4 (06:00→18:00)
[2020-01-19 06:12] LABS: ANION GAP 9.3 mmol/L (8-16); BLOOD UREA NITROGEN 20 mg/dL (7-26); BUN/CREATININE RATIO 20 (6-25); CALCIUM 8.6 mg/dL (8.4-10.2); CARBON DIOXIDE 21 mmol/L (22-29); CHLORIDE 116 mmol/L (98-107); CREATININE, SERUM 1.01 mg/dL (0.72-1.25); EST GLOMERULAR FILTRATION RATE > 60 ML/MIN (60-); GLUCOSE 90 mg/dL (74-118); POTASSIUM 4.3 mmol/L (3.5-5.1); SODIUM 142 mmol/L (136-145)
[2020-01-19] MEDS: SODIUM CHLORIDE 0.9% 1000ML 1,000 ML IV SCH ×2 (06:18→13:30)
--- NOTE | 2020-01-19 07:10 | NUR ---
RCD PT AT BED PT IS ALERT AND ORIENTED PT RESTING ON BED IV PATENT BY SALINE FLUSH BED LOW AND LOCKED CALL LIGHT IN REACH
[2020-01-19] MEDS: PANTOPRAZOLE SOD 40 MG TABEC PO SCH (07:30)
[2020-01-19 07:48] VITALS: BP 146/80
[2020-01-19] MEDS ORDERED: VANCOMYCIN PO (08:16)
[2020-01-19 08:26] VITALS: BP 146/80
[2020-01-19] MEDS: ASPIRIN 81 MG CHEW TAB PO SCH (09:00)
[2020-01-19] MEDS: LACTOBACILLUS ACIDOPHILUS CAPSULE PO SCH ×2 (09:00→15:44)
--- NOTE | 2020-01-19 09:00 | NUR ---
AC TO PTS REQUEST TO DISCHARGE PAGED AND TALKED DR VILLATORO REGARDING DISCHARGE HE SAID HE COMING TO DISCHARGE THE PATIENT
[2020-01-19 11:52] VITALS: BP 139/78
[2020-01-19] MEDS: ACETAMINOPHEN 325 MG TAB PO PRN (12:15)
--- NOTE | 2020-01-19 15:00 | NUR ---
IMM letter explained to pt over the phone. He verbalized understanding. States he is ready to discharge today once MD rounds. Signed copy placed in chart. Copy given to GOMEZ Marte to give to pt.
[2020-01-19 15:32] VITALS: BP 154/73
--- NOTE | 2020-01-19 18:27 | NUR ---
PT WENT HOME IN SAFE CONDITION WITH HIS
--- NOTE | 2020-01-19 19:55 | Discharge Summary ---
FINAL DISCHARGE DIAGNOSES: 1. Syncope secondary to dehydration from Clostridium difficile colitis. 2. Clostridium difficile toxin positive with diarrhea - resolving. 3. Hypertension. 4. Hyperlipidemia. 5. Dehydration. 6. Acute kidney injury secondary to dehydration. CONSULTANTS: Infectious Disease, Cardiology, GI. PHYSICAL EXAMINATION: VITAL SIGNS: Temperature is 98, pulse 92, respiratory rate is 18, blood pressure 154/73, pulse ox 100% on room air. LABORATORY FINDINGS: Show white count 5.3, hemoglobin 9.8, hematocrit 29.7, platelets of 143. Chemistry; sodium 142, potassium 4.3, chloride 116, bicarb 21, anion gap of 9.3, BUN is 20, creatinine is 1.01. Iron saturation 33%. Total bilirubin is 0.2, AST is 14, ALT is 12. Troponins were negative. Albumin 4.1. TSH is 0.612. Folic acid 73.7. [place] virus is negative. Albumin 4.1. IMMUNOLOGY: IgA 94, endomysial IgA antibody negative, tissue transglutaminase IgA less than 2. SEROLOGY: Clostridium difficile toxin was positive. MICROBIOLOGY: All stool cultures were found to be negative except for Clostridium difficile toxin. IMAGING STUDIES: Chest x-ray shows no acute abnormalities. CT abdomen and pelvis shows colonic diverticulosis with possible mild descending colon diverticulitis. No abscess formation. Moderate volume of stool within the colon and rectum. HOSPITAL COURSE: This is a 69-year-old male who came in from the GI Clinic due to having near syncopal episode at the GI office. The patient came in, found to be hypotensive, severe dehydration, and found to be in acute kidney injury. Apparently, the patient has been having significant amount of loose watery stool ongoing for the last several days prior to arrival to the hospital. Due to the patient's hypotension, he was initially admitted to the ICU for close monitoring and evaluation. The patient was admitted, and Cardiology was consulted for the underlying syncopal episode. After further investigation, the patient's syncope was secondary to dehydration. No further cardiac workup was needed. Of note, the patient was cleared by Cardiology. The patient was maintained on IV fluid hydration. Stool cultures were collected, and the Clostridium difficile toxin was found to be positive. GI was consulted as well as ID. The patient was then converted to oral vancomycin, in which the patient's diarrhea improved tremendously during the hospital course. The patient was found to have acute kidney injury on admission, but downtrended back to normal with IV fluid hydration. All cultures were found to be negative except for the Clostridium difficile toxin. GI was also following and cleared the patient for discharge including ID. The patient was discharged on 2 weeks of oral vancomycin as per ID recommendations. I discussed with the patient if the patient continues to have diarrhea at home after treatment, he will need to follow up with ID very closely and may need further oral vancomycin treatment as an outpatient for extended period of time. He verbalized understanding. The patient was cleared for discharge by all consultants. On the day of discharge, vital signs were stable, labs reviewed and stable. The patient is seen, evaluated, and examined thoroughly on the day of discharge. No other complaints. The patient verbalized understanding and agreed to plan of care to follow up accordingly as an outpatient with primary care physician in 1 week and ID specialist and GI in 2 weeks' time. MEDICATIONS: See med reconciliation form. DISPOSITION: Home. CONDITION: Stable. DIET: Heart healthy. In the event of any worsening symptoms, the patient was advised to come back to the ED for further evaluation. Discharge summary took greater than 35 minutes. MD ANGY Kilgore/TAYLOR /[id number]
== END 2020-01-19 18:29 | disposition home or self-care (01) | DRG 372 ==
LOC: ER 11:54 → ERHOLD 13:37 → ICU 15:05 → MED/SURG2 01-17 22:05
PROVIDERS: ADMIT Internal Medicine; ATTEND Internal Medicine
DX: A04.72 Enterocolitis due to Clostridium difficile, not specified as recurrent (principal); N17.9 Acute kidney failure, unspecified; I10 Essential (primary) hypertension; E78.5 Hyperlipidemia, unspecified; R55 Syncope and collapse; E86.0 Dehydration; K21.9 Gastro-esophageal reflux disease without esophagitis; Z83.3 Family history of diabetes mellitus; Z82.49 Family history of ischemic heart disease and other diseases of the circulatory system; Z95.2 Presence of prosthetic heart valve; D64.9 Anemia, unspecified
CPT/HCPCS: 36415; 71045; 74176; 80048; 80053; 82550; 82553; 82607; 82728; 82746; 82784; 83516; 83540; 83993; 84443; 84466; 84484; 85025; 85045; 85651; 86140; 86256; 87045; 87177; 87328; 87493; 93005; 93306; 96361; 99284; J7030